=== PATIENT | male | born 1970 | race Caucasian/White ===

== ENCOUNTER 2023-04-06 06:17 | Outpatient (CLI) | payer MEDICAID, SELFPAY ==
--- NOTE | 2023-04-06 | ECG_ITS ---
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 Interpretive Statements NAME OF STUDY: LEXISCAN SESTAMIBI STRESS TEST INDICATION: [Chest Pain, ] Procedure: At the baseline, the blood pressure was 106/62mmHg with a heart rate of 61 bpm. The electrocardiogram showed normal sinus rhythm, normal axis with normal ST and T's. The Lexiscan was infused over a period of 20 seconds. A total of 0.4 mg of Lexiscan was infused. The stress phase was continued for a total of 5 minutes. Heart rate was at the end of stress phase was 76 bpm and a blood pressure of 109/69mmHg. The EKG at the peak infusion revealed normal sinus rhythm with no significant ST-T wave changes. Sestamibi was injected 20 seconds after the Lexiscan infusion. Blood pressure at the end of recovery phase was 107/64mmHg with a heart rate of 73 bpm. Conclusion: 1. Normal EKG response to Lexiscan infusion 2. No Lexiscan induced chest pain or cardiac arrhythmia. 3. Normal blood pressure and heart rate response. 4. Sestamibi/sestamibi perfusion scan pending; see separate report. Electronically Signed On 04-07-2023 10:56:11 CDT by Mane Ventura M.D. [id number]
[2023-04-06 06:43] VITALS: BMI 24.3
--- NOTE | 2023-04-06 06:44 | NMCV_ITS ---
NM marnie perf SPECT r/s* [id number] Ezekiel Miller Age: 53 Gender: M : 1970 Exam Date: 04/06/2023 06:44 Ordering Phys: Mane Ventura M.D ([email or web address]) Technologist: GISELA Dietrich Exam Location: [facility] Indications: CHEST PAIN STRESS TEST Please see separate stress test report in [facility] for full findings IMAGE PROTOCOL Rest/Stress 1 Lexiscan Day Radiopharmaceutical Dose (mCi) Administration Site Administered by Rest: Tc-99m 10.7 IV GISELA Samaniego Sestamibi Stress:Tc-99m 33.0 IV GISELA Samaniego Sestamibi Rest: 06-Apr-2023 60 Discovery 630 Stress: 06-Apr-2023 30 Discovery 630 0.4mg Lexiscan. Images obtained in supine and prone position. SPECT RESULTS Technical Quality: Excellent Raw Data Analysis: Normal Image Corrections: No attenuation or motion correction applied Summed Stress Score: 0 Summed Rest Score: 1 Summed Difference Score: 0 PERFUSION FINDINGS SPECT images demonstrate homogeneous tracer distribution throughout the myocardium. FUNCTIONAL RESULTS (calculated via Gated SPECT) Stress Image LV EF (%): 52 Stress EDV (mL):107 TID: 0.87 Stress ESV (mL):51 FUNCTIONAL FINDINGS: There is normal left ventricular systolic function. IMPRESSIONS 1. Normal myocardial perfusion imaging with no evidence of ischemia 2. LV systolic function is normal Mane Ventura MD (Electronically Signed) Final Date: 06 April 2023 17:04 S
[2023-04-06] MEDS: regadenoson 0.4 Mg/5 ml Syringe IVP (08:12)
[2023-04-06 08:29] VITALS: BP 107/64; PULSE 73
== END 2023-04-06 06:18 | disposition home or self-care (01) ==
LOC: CDL 06:18
PROVIDERS: PCP Nurse Practitioner Family; Visit Provider Internal Medicine
DX: R07.9 Chest pain, unspecified (principal)
CPT/HCPCS: 36415; 78452; 93017; 96374; A9500; J2785

== ENCOUNTER → 2023-05-11 12:39 | Outpatient (BNVA) | payer MEDICAID, SELFPAY | PROVIDERS: PCP Nurse Practitioner Family; Visit Provider Family Medicine | DX: Z01.818 Encounter for other preprocedural examination (principal) | CPT/HCPCS: 80053; 81000; 85025 ==

== ENCOUNTER 2023-05-27 09:38 | Day surgery (SDC) | payer MEDICAID, SELFPAY ==
[2023-05-27] VITALS (7 sets, daily range): BP systolic 115–124; BP diastolic 67–86; PULSE 58–78; RESP 16–18; TEMP 36.2; O2SAT 96–99; BMI 24.3
--- NOTE | 2023-05-27 10:53 | ANES.PREANE2 ---
Pre-Anesthetic Assessment Height/Weight: Height 1.73 m Pulse Resp BP Pulse Ox O2 Del Method 61 18 118/67 99 Room Air 05/27/23 10:29 05/27/23 10:29 05/27/23 10:29 05/27/23 10:29 05/27/23 10:35 Preop Diagnosis: RIght inguinal hernia Operation Date: 05/27/23 11:15 Proposed Procedures p [id number] laparascopic possible open right inguinal hernia repar with mesh K40.90(Right) - Juancho More MD Familial anesthetic complications: None Was Beta Jose taken within 24 hours: N/A Was Clonidine taken within 24 hours: N/A Last intake: Intake Last Liquid Date 05/26/23 Last Liquid Time 22:30 Last Solid Date 05/26/23 Last Solid Time 17:00 Social Tobacco and No alcohol Exam alert, oriented x 3, clear to auscultation bilaterally and regular rate & rhythm Airway Mallampati: Class I Dentition: other (no teeth) Comments: Comments: full elias CV/HEM Coronary Artery Disease (stent in 2012 - recent negative stress test and perfusion scan) and Hypertension Anesthetic Plan ASA status: 3 Anesthesia: General Risk of > 500 ml blood loss (7ml/kg in children): No Medications/Allergies Home Medications Medication Instructions Recorded Confirmed Last Taken Type aspirin 81 mg tablet,delayed 81 mg PO DAILY 08/30/19 05/26/23 05/20/23 History release (Adult Low Dose Aspirin) nitroglycerin 0.4 mg sublingual 0.4 mg sublingual Q5M PRN chest 12/11/21 05/26/23 Unknown Rx tablet (Nitrostat) pain #25 tabs lisinopril 5 mg tablet 5 mg PO DAILY #90 tabs 06/23/22 05/26/23 05/26/23 Rx clopidogrel 75 mg tablet 75 mg PO DAILY #90 tabs 06/27/22 05/26/23 05/20/23 Rx metoprolol tartrate 25 mg tablet 25 mg PO BID #180 tabs 04/02/23 05/26/23 05/27/23 07:00 Rx cetirizine 10 mg tablet (Zyrtec) 10 mg PO DAILY allergy symptoms 04/08/23 05/26/23 05/26/23 Rx #30 tabs fluticasone propionate 50 2 spray intranasal DAILY #16 grams 04/08/23 05/26/23 05/26/23 Rx mcg/actuation nasal spray,suspension (Flonase Allergy Relief) atorvastatin 80 mg tablet 80 mg PO DAILY #30 tabs 05/14/23 05/26/23 05/26/23 Rx Allergies Allergy/AdvReac Type Severity Reaction Status Date / Time No Known Allergies Allergy Verified 05/26/23 12:59 PFS Anesthesia Medical History (Updated 04/13/23 @ 20:22 by REMY Horne) ASHD (arteriosclerotic heart disease) Dyslipidemia Erectile disorder due to medical condition in male HTN (hypertension) Tobacco abuse Surgical History S/P angioplasty with stent Social History Smoking and tobacco/nicotine status: current every day tobacco/nicotine user cigarettes Packs smoked per day: 0.75 Years cigarettes smoked: 33 Quit status (tobacco/nicotine): has tried quititng Alcohol intake: former Substance/Drug Use: never Household members: spouse Marital status: service: No Current occupational status: employed Data Anesthesia Cardiac Studies: Sestamibi Stress Test (Cardiology) 04/06/23
--- NOTE | 2023-05-27 10:53 | W.PM.OPSFHP ---
Same Day Surgery H&P Indication for Procedure/HPI DATE OF PROCEDURE: May 27, 2023 CHIEF COMPLAINT/INDICATIONFOR SURGICAL PROCEDURE: right inguinal hernia PREOP DIAGNOSIS: RIght inguinal hernia PLANNED PROCEDURE: Operation Date: 05/27/23 11:15 Proposed Procedures p [id number] laparascopic possible open right inguinal hernia repar with mesh K40.90(Right) - Juancho More MD Medications/Allergies* Home Medications Medication Instructions Recorded Confirmed Type aspirin 81 mg tablet,delayed 81 mg PO DAILY 08/30/19 05/26/23 History release (Adult Low Dose Aspirin) Allergies/Adverse Reactions Allergy/AdvReac Type Severity Reaction Status Date / Time No Known Allergies Allergy Verified 05/26/23 12:59 Pertinent History/Comorbid Conditions* Medical History (Updated 04/13/23 @ 20:22 by REMY Horne) ASHD (arteriosclerotic heart disease) Dyslipidemia Erectile disorder due to medical condition in male HTN (hypertension) Tobacco abuse Surgical History (Updated 08/31/19 @ 13:56 by Leonel Gale MD) S/P angioplasty with stent Social History Smoking and tobacco/nicotine status: current every day tobacco/nicotine user cigarettes Packs smoked per day: 0.75 Years cigarettes smoked: 33 Quit status (tobacco/nicotine): has tried quititng Alcohol intake: former Substance/Drug Use: never Household members: spouse Marital status: service: No Current occupational status: employed Pertinent Exam Findings alert, oriented x 3, clear to auscultation bilaterally, regular rate & rhythm and operative site marked Recommendations Surgery/Procedure today Coding Level of Care Code Acute Code for Chg Fwd Diagnoses
[2023-05-27] MEDS: sodium chloride 0.9% 1,000 ML 30 ML IV (11:18)
[2023-05-27] MEDS: ceFAZolin 2,000 MG in sodium chloride 0.9% (plus) 50 ML 100 MG IV (13:00)
[2023-05-27] MEDS: BUPivacaine 0.25% INJ 10 mL INJECTION (14:06)
[2023-05-27] MEDS: lidocaine-epi 2% 20 mL INJ 10 ML INJECTION (14:06)
--- NOTE | 2023-05-27 14:18 | P.OP_ITS ---
Operative Report Date of procedure: May 27, 2023 Pre-op diagnosis: Right inguinal hernia Post-op diagnosis: Same Procedure done: Right inguinal hernia repair with mesh laparoscopic Implants: Large right 3D max mesh Surgeon: Juancho More MD Injection Molding Machine Operator: LARY OR Staff Findings: There was a direct right inguinal hernia, no indirect component. Brief History: 53-year-old male who presents for evaluation of right inguinal hernia. After discussion of all risk and benefits with to proceed with laparoscopic possible open right inguinal hernia repair with mesh. Procedure: Patient was brought into the OR, general esthesia was given. The abdomen was prepped and draped in the usual sterile fashion, a Villanueva catheter was inserted. Timeout was conducted. A 1.5 cm infraumbilical incision was made, the incision was deepened until the anterior rectus sheath was identified, the indurated procedure was opened and the muscle retracted laterally, given access to the posterior rectus space. And a Spacemaker was then advanced in this plane to the level of the pubic bone. The Spacemaker was opened and under direct visualization. It was then removed and replaced by a 12 mm trocar. Additional 5mm trocars were placed in the suprapubic and infraumbilical positions. I then proceeded with blunt dissection of the right space of Retzius, I started at the level of the pubic bone until the Minor's ligament was identified, at this point it was apparent that there was a large direct component of this patient inguinal hernia, all the contents were then reduced which consisted of only preperitoneal fat. I then proceeded with lateral dissection and in the process I identified the cord structures and individualize the vas deferens and testicular vessels. The peritoneal reflection was then pulled down about 4 to 5 cm from the internal ring to ensure proper space for mesh placement. No indirect defect was noted. A large right 3D max mesh was then inserted in the space and positioned to cover the direct, indirect and femoral spaces. The mesh was tacked to the pubic bone with 1 absorbable tacker. The cavity was deflated under direct visualization, trocars were removed. The anterior rectus sheath was closed with #0 Vicryl with a UR 6 needle. The wounds were closed with #4-0 Monocryl, Dermabond was then applied. At the end of the procedure all counts were correct. The patient tolerated well the procedure and was transferred to the PACU in stable condition.
[2023-05-27] MEDS: oxyCODONE 5 mg IR Tab/Cap PO (14:58)
--- NOTE | 2023-05-27 15:25 | ANE.PACU2 ---
Inpatient post-anesthesia follow up: Airway intact: Yes Vital signs: Temperature 97.1 F Pulse Rate 62 Respiratory Rate 16 Blood Pressure 115/80 Pulse Oximetry 98 Oxygen Delivery Me thod Room Air Oxygen Flow Rate Fraction of Inspir ed Oxygen Hydration adequate: Yes Nausea and vomiting: No Pain level: 1 Mental status: Baseline
== END 2023-05-27 15:24 | disposition home or self-care (01) ==
PROVIDERS: PCP Nurse Practitioner Family; Visit Provider Surgery
PROC: (CPT 49650; principal; 2023-05-27 11:05)
DX: K40.90 Unilateral inguinal hernia, without obstruction or gangrene, not specified as recurrent (principal); I25.10 Atherosclerotic heart disease of native coronary artery without angina pectoris; I10 Essential (primary) hypertension; Z79.82 Long term (current) use of aspirin; F17.210 Nicotine dependence, cigarettes, uncomplicated; E78.5 Hyperlipidemia, unspecified
CPT/HCPCS: 49650; 51702; C1781; J0690; J1100; J2250; J2405; J2704; J2710; J3010; J3490; J7030

== ENCOUNTER → 2024-01-11 11:40 | Outpatient (BNVA) | payer MEDICAID, SELFPAY | PROVIDERS: PCP Nurse Practitioner Family; Visit Provider Nurse Practitioner Family | DX: I10 Essential (primary) hypertension (principal); R53.83 Other fatigue | CPT/HCPCS: 80053; 80061; 82306; 82607; 84443; 85025 ==

== ENCOUNTER 2024-02-02 08:28 | Outpatient (CLI) | payer MEDICAID, SELFPAY ==
--- NOTE | 2024-02-02 08:30 | XR_ITS ---
WS: [id number] Right wrist, 3 views, 02/02/2024 Clinical Data: M25.531 - Pain in right wrist Comparison: None. Findings: No fractures or dislocations are seen. The carpal bones are intact. There is no soft tissue swelling. The distal radius and ulna are not remarkable. XR/XR wrist RT min 3V* [id number] Impression: Negative right wrist.
--- NOTE | 2024-02-02 09:00 | CT_ITS ---
WS: [id number] LDCT LUNG CANCER SCREENING TECHNIQUE: Noncontrast CT of the chest with coronal and sagittal reformatted images. CLINICAL INFORMATION: F17.210 - Nicotine dependence, cigarettes, uncomplicated COMPARISON: None. DLP: 54.01 mGy.cm DIvol: Mean CTDIvol: 0.90 (mGy) All CT scans at [facility] use at least one of these dose optimization techniques: automat ed exposure control; mA and/or kV adjustment per patient size (includes targeted exams where dose is matched to clinical indication); or iterative reconstruction. FINDINGS: Mild chronic emphysematous changes. 2 small 4 to 5 mm nodules in the RIGHT middle lobe. Nod ular thickening along the RIGHT fissure measuring 4 mm. Tiny nodule LEFT upper lobe. Few small 3 mm nodules in the LEFT upper lobe and lingula. Two largest nodules LEFT lower lobe measu ring 5 mm. Aortic calcification. Coronary calcification. No mediastinal or hilar lymphadenopathy. No axillary ly mphadenopathy. Mild thoracic curve. Hypertrophic changes thoracic spine. Mild thoracic kyphosis. CT/CT lung screening 82205 IMPRESSION: LUNG-RADS: 2-Benign Appearance or Behavior FOLLOW UP: 12 Month: Continue annual screening with LDCT
== END 2024-02-02 08:29 | disposition home or self-care (01) ==
LOC: RAD 08:29
PROVIDERS: PCP Nurse Practitioner Family; Visit Provider Nurse Practitioner Family
DX: Z12.2 Encounter for screening for malignant neoplasm of respiratory organs (principal); M25.531 Pain in right wrist; F17.210 Nicotine dependence, cigarettes, uncomplicated; J43.9 Emphysema, unspecified; R91.8 Other nonspecific abnormal finding of lung field; I70.0 Atherosclerosis of aorta; M40.204 Unspecified kyphosis, thoracic region
CPT/HCPCS: 71271; 73110

== ENCOUNTER 2024-09-22 14:52 | Outpatient (CLI) | payer MEDICAID, SELFPAY ==
[2024-09-22 15:04] LABS: Basophils # 0.1 10^3/uL (0.0-0.1); Basophils % 0.9 %; Eosinophils # 0.5 10^3/uL (0.0-0.8); Hematocrit 46.7 % (37-53); Lymphocytes # 1.9 10^3/uL (0.8-4.8); Lymphocytes % 20.5 %; Mean Corpuscular Hemoglobin 32.9 pg (27-33); Mean Corpuscular Volume 96.5 fl (82-101); Mean Platelet Volume 9.8 fL (7.4-10.4); Monocytes # 0.7 10^3/uL (0.2-0.9); Monocytes % 7.5 %; Neutrophils # 6.14 10^3/uL (1.8-7.7); Nucleated Red Blood Cells % 0 %; Platelet Count 209 10^3/cmm (157-399); Red Blood Count 4.84 10^6/uL (3.85-5.65); Red Cell Distribution Width 13.2 % (12.1-15.1); White Blood Count 9.29 10^3/uL (3.29-11.43)
--- NOTE | 2024-09-22 15:30 | USCV_ITS ---
Ezekiel Miller Age: 54 Gender: M : 1970 Exam Date: 09/22/2024 15:01 Ordering Phys: Veronika Garces FINANCE AND ADMINISTRATION MANAGER Technologist: R Exam Location: [facility] Indication: bruit Risk Factors: Previous Vascular Surgery: Right Brachial BP: / Left Brachial BP: / Right Left Velocity (cm/s) Spectral Plaque Velocity (cm/s) Spectral Plaque Syst/Diast Broadening Syst/Diast Broadening 169.80/25.50 Prox CCA 147.90/ 29.50 151.70/28.10 Mid CCA 199.10/ 32.70 119.60/21.60 Distal CCA 154.30/ 16.60 113.90/13.40 Prox ICA 49.10 / 12.40 124.20/18.50 Mid ICA 69.60 / 22.60 98.40/ 28.90 Distal ICA 67.70 / 24.00 154.40 ECA 102.90 1.00 ICA/CCA 0.30 Antegrade Vertebral Antegrade 27.40/ 5.80 cm/s 30.00/ 7.20 cm/s Tri Subclavian Tri 186.3 121.8 0 0 CONCLUSIONS Right ICA stenosis <50%. Moderate calcified atheromatous plaque right carotid bulb/ICA. Left ICA stenosis <50%. Moderate calcified atheromatous plaque left carotid bulb/ICA. Intimal thickening in the common carotid arteries and internal carotid arteries bilaterally. Normal antegrade Doppler flow noted in the right vertebral artery. Normal antegrade Doppler flow noted in the left vertebral artery. Daniel Garcia MD (Electronically Signed) Final Date: 22 September 2024 16:34 S
[2024-09-22 15:44] LABS: 25 Hydroxy Vitamin D 29 ng/mL (30-100); Alanine Aminotransferase 21 U/L (0-41); Albumin Level 4.2 g/dL (3.5-5.2); Alkaline Phosphatase 79 U/L (40-130); Anion Gap 12.9 (5-19); Aspartate Amino Transferase 21 U/L (0-40); Blood Urea Nitrogen 15 mg/dL (6-20); Calcium 9.4 mg/dL (8.5-10.5); Carbon Dioxide 29 mmol/L (22-29); Chloride 101 mmol/L (98-107); Chol HDL Ratio 3.44 mg/dL (1.0-5.00); Cholesterol 124 mg/dL (0-200); Globulin 2.4 g/dL (1.3-4.6); Glomerular Filtration Rate 78.2 mL/min (90-130); Glucose 97 mg/dL (65-115); HDL Cholesterol 36 mg/dL (60-100); LDL Cholesterol Calculated 66 mg/dL (50-129); LDL HDL Ratio 1.83 RATIO (0.00-3.22); Osmolality Calculated 289 mOsm/kg (285-295); Potassium 3.9 mmol/L (3.5-5.1); Sodium 139 mmol/L (136-145); Thyroid Stimulating Hormone 2.65 uIU/mL (0.27-4.20); Total Bilirubin 0.5 mg/dL (0.15-1.2); Total Protein 6.6 g/dL (6.6-8.7); Triglycerides 109 mg/dL (0-150); Vitamin B12 297 pg/mL (232-1245)
== END 2024-09-22 14:53 | disposition home or self-care (01) ==
LOC: RAD 14:53
PROVIDERS: Family Provider Nurse Practitioner Family; PCP Nurse Practitioner Family; Visit Provider Nurse Practitioner Family
DX: R09.89 Other specified symptoms and signs involving the circulatory and respiratory systems (principal); I10 Essential (primary) hypertension; I65.23 Occlusion and stenosis of bilateral carotid arteries; R93.89 Abnormal findings on diagnostic imaging of other specified body structures
CPT/HCPCS: 36415; 80053; 80061; 82306; 82607; 83735; 84443; 85025; 93880

== ENCOUNTER 2025-02-13 06:35 | Outpatient (CLI) | payer MEDICAID, SELFPAY ==
--- NOTE | 2025-02-13 07:30 | CT_ITS ---
WS: [id number] LDCT LUNG CANCER SCREENING HISTORY: F17.210 - Nicotine dependence, cigarettes, uncomplicated TECHNIQUE: Axial imaging performed from the apices to 1 cm below the costophrenic angles. Coronal and sagittal reformats are submitted with axial MIP series. All CT scans at [facility] use at least one of these dose optimization techniques: automated exposure control; mA and/or kV adjustment per patient size (includes targeted exams where dose is matched to clinical indication); or iterative reconstruction. DLP: 55.80 mGy.cm DIvol: Mean CTDIvol: 1.00 (mGy) COMPARISON: None available. Diagnostic quality: Satisfactory Lungs: Moderate pulmonary hyperinflation. Moderate centrilobular emphysema. Mild biapical scarring and pleural thickening. There is numerous, scattered very small pulmonary nodules. The largest is 4 mm adjacent to the RIGHT major fissure. Smaller nodule measuring approximately 2 mm LEFT upper lobe. There are 2 nodules in the LEFT lower lobe each measuring about 3 mm. There is a LEFT perifissural nodule measuring 3 mm. Stable nodules in the RIGHT middle lobe. These nodules are increasing in size since 02/02/2024. No endobronchial lesions. Heart: Normal size heart with no pericardial effusion.. Moderate coronary artery calcifications. Other findings: Mild atherosclerosis aorta. No aneurysm. Normal size pulmonary artery. No adenopathy. Small hiatal hernia. Visualized adrenal glands are negative. The entire adrenal glands are not included. Thoracic atherosclerotic disease. Hypertrophic osteophytes. No destructive bone lesions. CT/CT lung screening 29000 IMPRESSION: LUNG-RADS: 2-Benign Appearance or Behavior FOLLOW UP: 12 Month: Continue annual screening with LDCT OTHER FINDINGS (S MODIFIER): None.
== END 2025-02-13 06:36 | disposition home or self-care (01) ==
LOC: RAD 06:37
PROVIDERS: PCP Nurse Practitioner Family; Visit Provider Nurse Practitioner Family
DX: Z12.2 Encounter for screening for malignant neoplasm of respiratory organs (principal); F17.210 Nicotine dependence, cigarettes, uncomplicated; J43.2 Centrilobular emphysema; J98.4 Other disorders of lung; J92.9 Pleural plaque without asbestos; R91.8 Other nonspecific abnormal finding of lung field; I70.0 Atherosclerosis of aorta; E89.6 Postprocedural adrenocortical (-medullary) hypofunction; M25.78 Osteophyte, vertebrae
CPT/HCPCS: 71271

== ENCOUNTER 2025-02-16 08:40 | Outpatient (CLI) | payer MEDICAID, SELFPAY ==
--- NOTE | 2025-02-16 | ECG_ITS ---
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 The perfusion scan will be documented separately. DATA: Baseline heart rate was 54 beats per minute. Baseline blood pressure was 109/71 millimeters of mercury. Target heart rate was 167. Maximum heart rate achieved was 87. which was 52% of the predicted target heart rate. Maximum blood pressure was 109/71 millimeters of mercury. The reason for ending the test was completion of the protocol. The patient did not experience any symptoms. ELECTROCARDIOGRAM: BASELINE: Sinus rhythm. Normal axis. Otherwise, no ST-T changes suggestive of ischemia noted. No arrhythmia noted. EXERCISE: After Lexiscan injection, no ST-T changes suggestive of ischemic noted. No arrhythmia noted. CONCLUSION: Please note due to baseline abnormality of the EKG specificity and sensitivity of the EKG portion of LexiScan MIBI stress test will be low 1. EKG not suggestive of ischemia 2. Lexiscan injection unremarkable. 3. Perfusion scan will be documented separately. Electronically Signed On 03-06-2025 18:33:14 CDT by KEI TIRADO [email or web address] [id number]
[2025-02-16 08:46] VITALS: BMI 24.0
--- NOTE | 2025-02-16 08:49 | NMCV_ITS ---
NM marnie perf SPECT r/s* [id number] Ezekiel Miller Age: 54 Gender: M : 1970 Exam Date: 02/16/2025 09:35 Ordering Phys: Mane Ventura M.D ([email or web address]) Technologist: GISELA Salguero Exam Location: [facility] Indications: cp STRESS TEST [facility] IMAGE PROTOCOL Rest/Stress 1 Lexiscan Day Radiopharmaceutical Dose (mCi) Administration Site Administered by Rest: Tc-99m 10.7 IV Mami Henao FINANCIAL CONSULTANT Sestamibi Stress:Tc-99m 32.4 IV Mami Orellanagle, FINANCIAL CONSULTANT Sestamibi Rest: 02/16/2025 60 Discovery 630 Stress: 02/16/2025 30 Discovery 630 0.4mg Lexiscan. Images obtained in supine and prone position. SPECT RESULTS Technical Quality: Good Raw Data Analysis: Normal Image Corrections: No attenuation or motion correction applied Summed Stress Score: 7 Summed Rest Score: 0 Summed Difference Score: 7 PERFUSION FINDINGS Medium sized area of fixed perfusion defect noted in basal to mid inferior and 4 septal wall which showed medium sized area of moderate reversibility suggestive of old myocardial infarction surrounded by medium size area of moderate ischemia in RCA territory. This is abnormal stress test. There is basal to mid inferior inferoseptal wall motion abnormality. FUNCTIONAL RESULTS (calculated via Gated SPECT) Stress Image LV EF (%): 55 Stress EDV (mL):83 TID: 0.88 Stress ESV (mL):37 Rest Image LV EF (%): 55 FUNCTIONAL FINDINGS: Threre is basal to mid and inferoseptal wall motion abnormality IMPRESSIONS Medium sized area of fixed perfusion defect noted in basal to mid inferior and 4 septal wall which showed medium sized area of moderate reversibility suggestive of old myocardial infarction surrounded by medium size area of moderate ischemia in RCA territory. This is abnormal stress test. There is basal to mid inferior inferoseptal wall motion abnormality. Billy Trevino MD (Electronically Signed) Final Date: 16 February 2025 12:48 S
[2025-02-16 10:20] VITALS: BP 101/56; PULSE 73
== END 2025-02-16 08:41 | disposition home or self-care (01) ==
LOC: CDL 08:42
PROVIDERS: PCP Nurse Practitioner Family; Visit Provider Internal Medicine
DX: R07.9 Chest pain, unspecified (principal); R06.02 Shortness of breath; R93.1 Abnormal findings on diagnostic imaging of heart and coronary circulation
CPT/HCPCS: 36415; 78452; 93017; 96374; A9500; J2785

== ENCOUNTER 2025-02-28 07:35 | Outpatient (CLI) | payer MEDICAID, SELFPAY ==
--- NOTE | 2025-02-28 08:30 | USCV_ITS ---
Ezekiel Miller Age: 54 Gender: M : 1970 Exam Date: 02/28/2025 08:02 Ordering Phys: Mane Ventura M.D ([email or web address]) Technologist: Exam Location: [facility] Indication: cp murmur BP: 120 / 70 HR: 64 Rhythm: Sinus Technical Quality: Adequate MEASUREMENTS (Male / Female) Normal Values 2D ECHO LV Diastolic Diameter PLAX 4.2 cm 4.2 - 5.9 / 3.9 - 5.3 cm IVS Diastolic Thickness 1.1 cm 0.6 - 1.0 / 0.6 - 0.9 cm IVS Systolic Thickness 1.7 cm LVPW Diastolic Thickness 1.3 cm 0.6 - 1.0 / 0.6 - 0.9 cm LVPW Systolic Thickness 1.6 cm LVOT Diameter 2.0 cm LV Ejection Fraction 2D Teich 41.2 % LV Ejection Fraction MOD 4C 61.3 % LV Ejection Fraction MOD 2C 61.2 % LV Ejection Fraction 2C AL 61.3 % LA Diameter 3.4 cm RA Systolic Volume 4C AL 48.9 ml RA Systolic Volume 4C MOD 47.6 ml Aorta at Sinotubular Diameter 3.0 cm IVC Diameter 1.7 cm M-MODE LA Ao Ratio MM 1.2 AV Cusp Separation MM 2.3 cm DOPPLER AV Peak Velocity 188.0 cm/s LVOT Peak Velocity 91.0 cm/s AV Area Cont Eq vti 2.0 cm squared AV Area Cont Eq pk 1.6 cm squared MV Peak Velocity 89.0 cm/s MV Area PHT 4.6 cm squared Mitral E to A Ratio 0.9 TV Peak Velocity 143.0 cm/s TR Peak Velocity 211.0 cm/s TR Peak Gradient 17.8 mmHg PV Peak Velocity 127.0 cm/s FINDINGS Left Ventricle Left ventricle is normal in size. LV systolic function is normal with EF of 50-55%. No regional wall motion abnormalities are seen. Right Ventricle Normal in size and function Right Atrium Normal in size Left Atrium Normal in size Mitral Valve Structurally normal mitral valve. Trace mitral regurgitation. Aortic Valve Structurally normal aortic valve. No significant stenosis or regurgitation. Tricuspid Valve Insufficient TR jet to calculate RVSP Pulmonic Valve Not well visualized Pericardium Normal Aorta Normal in size IVC Appears to be normal CONCLUSIONS LV systolic function is normal with EF of 50-55% Trace mitral regurgitation No comparison studies are available. Mane Ventura MD (Electronically Signed) Final Date: 01 March 2025 10:55 S
== END 2025-02-28 07:36 | disposition home or self-care (01) ==
LOC: RAD 07:36
PROVIDERS: PCP Nurse Practitioner Family; Visit Provider Internal Medicine
DX: R07.9 Chest pain, unspecified (principal); R06.02 Shortness of breath; I34.0 Nonrheumatic mitral (valve) insufficiency
CPT/HCPCS: 93306

== ENCOUNTER 2025-03-07 14:15 | Outpatient (CLI) | payer MEDICAID, SELFPAY ==
[2025-03-07 15:57] LABS: Hematocrit 47.4 % (37-53); Hemoglobin 16.20 g/dL (11.27-16.99); Mean Corpuscular HGB Conc 34.2 g/dL (30-55); Mean Corpuscular Hemoglobin 32.7 pg (27-33); Mean Corpuscular Volume 95.8 fl (82-101); Nucleated Red Blood Cells % 0 %; Platelet Count 190 10^3/cmm (157-399); Red Blood Count 4.95 10^6/uL (3.85-5.65); White Blood Count 8.34 10^3/uL (3.29-11.43)
[2025-03-07 16:09] LABS: INR 0.90 (0.83-1.21)
[2025-03-07 16:36] LABS: Anion Gap 15.0 (5-19); Blood Urea Nitrogen 10 mg/dL (6-20); Calcium 9.6 mg/dL (8.5-10.5); Carbon Dioxide 23 mmol/L (22-29); Chloride 106 mmol/L (98-107); Glucose 87 mg/dL (65-115); Osmolality Calculated 288 mOsm/kg (285-295); Potassium 4.0 mmol/L (3.5-5.1); Sodium 140 mmol/L (136-145)
== END 2025-03-07 14:16 | disposition home or self-care (01) ==
LOC: LAB 14:17
PROVIDERS: PCP Nurse Practitioner Family; Visit Provider Internal Medicine
DX: I10 Essential (primary) hypertension (principal); I25.10 Atherosclerotic heart disease of native coronary artery without angina pectoris; Z95.820 Peripheral vascular angioplasty status with implants and grafts; R58 Hemorrhage, not elsewhere classified
CPT/HCPCS: 36415; 80048; 85025; 85610

== ENCOUNTER 2025-03-10 07:27 | Outpatient (CLI) | payer MEDICAID, SELFPAY ==
[2025-03-10] VITALS (15 sets, daily range): BP systolic 88–123; BP diastolic 54–73; PULSE 57–72; RESP 12–17; TEMP 36.4; O2SAT 94–97; BMI 24.0
--- NOTE | 2025-03-10 07:30 | XACV_ITS ---
Ht: 173 cm Wt: 72 kg BSA: 1.86 m2 Gender: Male : 1970 Any Known Allergies: No known allergies Exam Priority: Routine Procedure(s): Procedure Description: Diagnostic procedure Procedure Description: Left Heart Catheterization Procedure Description: Left ventriculography Procedure Description: Coronary Angiography Diagnostic Cath Status: Elective Diagnostic Findings * INDICATION: Worsening dyspnea on exertion/ abnormal stress test. * Left Main has no significant disease. * Left Anterior Descending has patent prior stent. * Circumflex has no significant disease. * Proximal Right Coronary Artery: luminal irregularities 20% stenosis, RADHA: 3 flow. * Coronary angiography shows right dominance. Conclusions 1. There is luminal irregularities coronary artery disease with one vessel disease. Patent prior LAD stent. 2. Normal left ventricular systolic function. Ejection fraction of 50%. Recommendations * Aggressive risk factor modification. * Outpatient cardiology follow up in 2 weeks. Interventional RX Recommendation: medical therapy and/or counseling Diagnostic RX Recommendation: medical therapy and/or counseling Anticoagulation: Heparin Ventriculography Ejection Fraction: 50.0 % Pressures Phase:Rest AO : 74 / 55 ( 65 ) @ 10:04:00 AM 107 / 57 ( 77 ) @ 10:12:00 AM 108 / 58 ( 77 ) @ 10:12:00 AM LV : 126 / -9 / 14 @ 10:11:00 AM 125 / -10 / 14 @ 10:12:00 AM 125 / -10 / 14 @ 10:12:00 AM Valves Phase:DefaultPhase AV : 18.0 @ 9:19:37 AM AV Mean Gradient: 22.0 @ 9:19:37 AM Clinical Evaluation EBL: 5mL-10mL Procedural Details Pre-Procedure Time Out. Identified patient by full name and date of as verbalized by the patient/guarantor. Does the consent match the physician's order: Yes. Accurate & Complete Informed Consent: Yes. Inpatient/Outpatient History & Physical on Chart: Yes. If H&P is completed, is and addenduem needed: No; If yes, is the addendum complete: N/A. Visualize and Verify Site with Patient/Guarantor: N/A. Relevant Radiology Images available: Yes. Pre-op teaching completed and patient verbalized understanding. The risks, benefits, and alternatives of sedation and/or procedure were discussed by physician. The patient agrees to continue. Procedure started. [facility] Clinical Fraility Score: 4: Vulnerable. Rn Document Improvement Specialist Indications: dyspnea on exertion, abnormal stress test. Chest Pain Symptom Assessment: Typical Angina Symptoms. Cardiovascular Instability: No. Correct patient, site and procedure confirmed by cath team. PERRLA. Strong, equal hand restaurant shift leader bilaterally. Lungs clear x 5 lobes. IV Site on Arrival: 20 gauge in the left anticubital. IV Fluids: 0.9% NaCl at KVO. 0 mL infused prior to labor relations officer. Pre Procedural Pulses: bilateral dorsalis pedis was 1+. Pre Procedural Pulses: bilateral posterior tibial was 3+. Pre Procedural Pulses: bilateral radial was 3+. Oxygen started at 2liters/min via nasal canula. right groin was prepped with chloroprep then draped in the usual sterile fashion. right radial was prepped with chloroprep then draped in the usual sterile fashion. Baseline sample Acquired. HR: 61 BPM. Physician notified. Physician arrived. Equipment: 6F - Radial. Cardiac Cath Pack. ACIST Manifold Kit Model BT 2000. Heparinized Saline (2 units/mL), 1000 mL bag. Physician scrubbed in. Immediate Pre-Procedure Time Out. Correct Patient: Yes; Correct Procedure: Yes; Correct Site: Yes; Correct Patient Position: Yes; Correct Supplies: Yes; Dried Flammable Prep: Yes; Blood Products Available: N/A;. Lidocaine 1% infiltrated to the right radial. Arterial access obtained. A 5 canadian TIG catheter in over wire. Multiple views taken of left coronary artery. Catheter redirected to the RCA. Multiple views taken of right coronary artery. Catheter removed over the exchange wire. A 5 canadian Angled Pig catheter in over wire. EDP Sample taken: LV 126/-10,14; HR: 62 BPM; SpO2: 99%. LV gram performed in KELLEY @ 10 mL/second for a total of 30 mL. EDP Sample taken: LV 125/-11,14; HR: 64 BPM; SpO2: 99%. Pullback taken: LV 125/-11,14; AO 107/57(77); Mean: 22mmHg, Peak to Peak: 18mmHg, SEP: 8sec/min; HR: 64 BPM; SpO2: 99%. Physician scrubbed out. A TR Band was successful obtaining hemostatsis at the Right Radial artery insertion site. Post Procedure: Pulses reassessed and unchanged. PERRLA. Strong, equal hand restaurant shift leader bilaterally. No VTE prophylaxis required. Medication's Wasted: Lidocaine 1% = 18 mL. Medication's Wasted: Nitro = 49.8 mg. Medication's Wasted: Heparin = 1000 units. Total IV fluids: 50 mL. Contrast type used: Omnipaque 300 mgI/mL, 500 mL bottle. Post-op diagnosis: non obstructive CAD, patent stent. Complications: none. Estimated blood loss: 5mL-10mL. Responsiveness - Normal response to verbal stimuli; alert and oriented, PERRLA. Airway - Unaffected, no intervention required; spontaneous ventilation. Circulation: W/N/L, pulses unchanged. Nausea/Vomiting: Yes. Procedure completed. Patient transferred by wheelchair to CPRU. Vital chart was stopped. Access Site Site: Right Radial artery Sheath Size: 6 Fr Hemostasis Method: TR Band Hemostasis Success: Successful Procedure Medications Start: 8:54 AM Stop: 8:54 AM Medication: Versed Amount: 1 mg Route: I.V. Start: 8:54 AM Stop: 8:54 AM Medication: Fentanyl Amount: 50 mcg Route: I.V. Start: 9:02 AM Stop: 9:02 AM Medication: Nitrogylcerin Amount: 200 mcg Route: I.A. Start: 9:05 AM Stop: 9:05 AM Medication: Heparin Amount: 5000 units Route: I.V. Start: 9:07 AM Stop: 9:07 AM Medication: Versed Amount: 1 mg Route: I.V. Start: 9:07 AM Stop: 9:07 AM Medication: Fentanyl Amount: 50 mcg Route: I.V. I, the attending physician, have reviewed and verified all procedure medications. Yes, all medications given per verbal order History/Risk Factors Hypertension: Yes Dyslipidemia: Yes Peripheral Arterial Disease (PAD): No Myocardial Infarction (CO): No Obesity: No Renal Disease: No Tobacco Use: Current/Recent(w/in 1 year) Prior Interventions PCI: Yes CABG: No Valve Surgery: No Date of PCI: 10/11/2012 Report Signatures Finalized by Mane Ventura MD on 03/10/2025 09:32 AM
[2025-03-10 07:55] LABS: Hematocrit 51.5 % (37-53); Hemoglobin 17.50 g/dL (11.27-16.99); Mean Corpuscular HGB Conc 34.0 g/dL (30-55); Mean Corpuscular Hemoglobin 32.1 pg (27-33); Mean Corpuscular Volume 94.5 fl (82-101); Nucleated Red Blood Cells % 0 %; Platelet Count 198 10^3/cmm (157-399); Red Blood Count 5.45 10^6/uL (3.85-5.65); White Blood Count 10.97 10^3/uL (3.29-11.43)
[2025-03-10 08:14] LABS: Anion Gap 15.8 (5-19); Blood Urea Nitrogen 10 mg/dL (6-20); Calcium 9.6 mg/dL (8.5-10.5); Carbon Dioxide 24 mmol/L (22-29); Chloride 104 mmol/L (98-107); Creatinine Clr Calc Pharmacy 76.5723; Glucose 99 mg/dL (65-115); Osmolality Calculated 289 mOsm/kg (285-295); Potassium 3.8 mmol/L (3.5-5.1); Sodium 140 mmol/L (136-145)
--- NOTE | 2025-03-10 08:49 | W.PM.OPSFHP ---
Same Day Surgery H&P Indication for Procedure/HPI DATE OF PROCEDURE: March 10, 2025 CHIEF COMPLAINT/INDICATIONFOR SURGICAL PROCEDURE: Worsening dyspnea one exertion/abnormal stress test PREOP DIAGNOSIS: Worsening dyspnea one exertion/abnormal stress test PLANNED PROCEDURE: Operation Date: 03/10/25 08:30 Proposed Procedures p Cardiac Catheterization - [facility] w/wo LV & Coros(Left) - Mane Ventura M.D Possible percutaneous coronary intervention 54-year-old male with hospital history of coronary artery disease who has been having worsening dyspnea on exertion. We had a stress test performed which is abnormal. Plan for coronary angiogram with possible PCI. Risks and benefits of procedure were discussed with patient and he agrees to proceed Medications/Allergies* Home Medications ?Medication ?Instructions ?Recorded ?Confirmed ?Type aspirin 81 mg tablet,delayed 81 mg PO DAILY 08/30/19 03/09/25 History release (Adult Low Dose Aspirin) Allergies/Adverse Reactions Allergy/AdvReac Type Severity Reaction Status Date / Time No Known Allergies Allergy Verified 02/07/25 13:48 Current Medications: Generic Name Dose Route Start Last Admin Trade Name Freq PRN Reason Stop Dose Admin Sodium Chloride 1,000 mls @ 50 mls/hr 03/10/25 07:30 03/10/25 07:56 Sodium Chloride 0.9% IV 03/11/25 03:29 Not Given .Q20H ONE Pertinent History/Comorbid Conditions* Medical History (Updated 09/19/24 @ 07:43 by REMY Horne) Arthritis Rheumatoid arthritis Tobacco abuse ASHD (arteriosclerotic heart disease) HTN (hypertension) Erectile disorder due to medical condition in male Dyslipidemia Surgical History (Updated 06/08/23 @ 08:47 by Juancho More MD) Hx of inguinal hernia repair 05/27/23 Dr More right inguinal hernia repair with mesh S/P angioplasty with stent Social History Smoking and tobacco/nicotine status: current every day tobacco/nicotine user cigarettes Packs smoked per day: 0.75 Years cigarettes smoked: 33 Quit status (tobacco/nicotine): has tried quititng Alcohol intake: former Substance/Drug Use: never Household members: spouse Marital status: service: No Current occupational status: employed Pertinent Exam Findings alert, oriented x 3, clear to auscultation bilaterally and regular rate & rhythm Conscious Sedation Assessment PATIENT ASSESSED PRIOR TO SEDATION, WITH NO CHANGE NOTED: Yes AIRWAY EVAL/ANESTHESIA PLAN: normal airway, ASA III, Local Anesthesia, Risks, benefits & alternatives of sedation and/or procedure discussed and Patient agrees to continue as planned ADDITIONAL INFORMATION: Moderate sedation Recommendations Risks and benefits of procedure reviewed and Patient/family agree to proceed Surgery/Procedure today (Left heart cath with possible percutaneous coronary intervention) Coding Level of Care Code Acute Code for g Fwd
--- NOTE | 2025-03-10 09:29 | PC.NURSE ---
Pt arrived to CPRU 3 post cath recovery. Alert and oriented X 4. Breathing even and non-labored on room air. Denies pain. Right radial has TR band in place . Site asymptomatic, no signs of bleeding or hematoma. Call light in reach.
--- NOTE | 2025-03-10 12:28 | PC.NURSE ---
Tr band removal note Started releasing air from right radial tr band at 1025. 2ml air released every 10 minutes until band deflated. Band deflated at 1120. Large band aid was placed over site. Site asymptomatic. No signs of bleeding or hematoma. Radial pulse palpable.
== END 2025-03-10 12:35 | disposition home or self-care (01) ==
PROVIDERS: PCP Nurse Practitioner Family; Visit Provider Internal Medicine
DX: I25.10 Atherosclerotic heart disease of native coronary artery without angina pectoris (principal); Z95.5 Presence of coronary angioplasty implant and graft; I10 Essential (primary) hypertension; E78.5 Hyperlipidemia, unspecified; F17.210 Nicotine dependence, cigarettes, uncomplicated; Z79.82 Long term (current) use of aspirin; M06.9 Rheumatoid arthritis, unspecified
CPT/HCPCS: 36415; 80048; 85025; 93458; 99152; 99153; C1769; C1887; C1894; J1644; J2250; J3010; J3490; J7030; J9999; Q0163; Q9967

== ENCOUNTER → 2025-03-13 14:13 | Outpatient (BNVA) | payer MEDICAID, SELFPAY | PROVIDERS: PCP Nurse Practitioner Family; Visit Provider Nurse Practitioner Family | DX: I10 Essential (primary) hypertension (principal); J30.9 Allergic rhinitis, unspecified | CPT/HCPCS: 80053; 82306; 82785; 85025; 86001; 86003 ==

== ENCOUNTER → 2025-04-06 11:28 | Outpatient (BNVA) | payer MEDICAID, SELFPAY | PROVIDERS: PCP Nurse Practitioner Family; Visit Provider Nurse Practitioner Family | DX: R60.0 Localized edema (principal) | CPT/HCPCS: 80048 ==

== ENCOUNTER 2025-04-28 14:30 | Outpatient (CLI) | payer MEDICAID, SELFPAY ==
--- NOTE | 2025-04-28 14:33 | XR_ITS ---
WS: [id number] XR hip RT 2-3V wo/w pel* [id number] REASON FOR EXAM: M25.551 - Pain in right hip FINDINGS: No fracture or focal bone lesion. The right hip joint space is intact and relatively well preserved. There is mild subchondral sclerosis and osteophytosis of the acetabulum. No significant abnormality of the femoral head. XR/XR hip RT 2-3V wo/w pel* [id number] IMPRESSION: Minimal osteoarthritis.
== END 2025-04-28 14:31 | disposition home or self-care (01) ==
LOC: RAD 14:32
PROVIDERS: PCP Nurse Practitioner Family; Visit Provider Nurse Practitioner Family
DX: M16.11 Unilateral primary osteoarthritis, right hip (principal); M25.751 Osteophyte, right hip
CPT/HCPCS: 73502